=== PATIENT | female | born 1990 | race African-American/Black ===

== ENCOUNTER 2022-10-09 14:06 | Inpatient (IN) | payer MEDICAID, OTHER ==
[~2022-10-09] VITALS: Ht 160 cm; Wt 77.2 kg
[2022-10-09] MEDS ORDERED: LORazepam 2 MG/ML VIAL IM ONE (14:30)
[2022-10-09] MEDS ORDERED: HALOPERIDOL LACTATE 5 MG/ML VIAL IM ONE (14:30)
[2022-10-09] MEDS ORDERED: DiphenhydrAMINE HCL 50 MG/ML VIAL IM ONE (14:30)
[2022-10-09 15:41] LABS: BASOPHILS % (AUTO) 0.6 % (0.0-2.0); EOSINOPHILS % (AUTO) 0 % (1.0-6.0); HEMATOCRIT 34.1 % (36-46); HEMOGLOBIN 10.8 g/dL (12.0-16.0); LYMPHOCYTES # (AUTO) 2.1 K/uL (1.0-4.8); MEAN CORPUSCULAR HEMOGLOBIN 22.1 pg (26.0-34.0); MEAN CORPUSCULAR HGB CONC 31.7 G/dL (31.0-37.0); MEAN CORPUSCULAR VOLUME 70 fL (80-100); MONOCYTES # (AUTO) 0.7 K/uL (0.1-1.0); MONOCYTES % (AUTO) 5.5 % (2.0-9.0); NEUTROPHILS # (AUTO) 9.6 K/uL (1.8-7.7); NEUTROPHILS % (AUTO) 76.9 % (40.0-70.0); PLATELET COUNT (AUTO) 170 K/uL (150-450); RED BLOOD CELL COUNT(AUTO) 4.88 MIL/uL (4.00-5.20); RED CELL DISTRIBUTION WIDTH 15.3 % (11.5-14.5)
[2022-10-09 15:52] LABS: ANION GAP 14 mmol/L (8-16); CARBON DIOXIDE 21 mmol/L (22-29); CHLORIDE 99 mmol/L (98-107); CREATININE 1.17 mg/dL (0.60-1.30); GLOMERULAR FILTR. RATE CALC > 60 mL/min (>60); GLUCOSE,RANDOM 58 mg/dL (70-110); SODIUM SERUM 134 mmol/L (136-145)
[2022-10-09 15:56] LABS: ALANINE AMINOTRANSFERASE 120 U/L (12-78); ALBUMIN 3.6 g/dL (3.4-5.0); ALKALINE PHOSPHATASE 76 U/L (46-116); ASPARTATE AMINOTRANSFERASE 342 U/L (15-37); BILIRUBIN,TOTAL 1.2 mg/dL (0.1-1.0); TOTAL PROTEIN, SERUM 6.7 g/dL (6.4-8.2)
[2022-10-09 17:54] LABS: COVID AG,FIA SOURCE NASAL SWAB
[2022-10-10] MEDS ORDERED: HALOPERIDOL 5 MG TABLET PO PRN (01:00)
[2022-10-10] MEDS ORDERED: ZOLPIDEM TARTRATE 10 MG TABLET PO PRN (01:00)
[2022-10-10] MEDS ORDERED: ACETAMINOPHEN 500 MG TABLET PO ONE (07:00)
[2022-10-10] MEDS ORDERED: DiphenhydrAMINE HCL 50 MG/ML VIAL IM ONE (09:00)
[2022-10-10] MEDS ORDERED: HALOPERIDOL LACTATE 5 MG/ML VIAL IM ONE (09:00)
[2022-10-10] MEDS ORDERED: LORazepam 2 MG/ML VIAL IM ONE (09:00)
[2022-10-10 12:15] VITALS: BP 115/62; PULSE 86; RESP 16; TEMP 98; O2SAT 99
[2022-10-10] MEDS ORDERED: GuaiFENesin/D-METHORPHAN [SUGAR-FREE] 200-20MG/10 ML SYRUP UDCUP PO PRN (15:00)
[2022-10-10] MEDS ORDERED: DOCUSATE SODIUM 100 MG CAPSULE PO PRN (15:00)
[2022-10-10] MEDS ORDERED: NICOTINE 14 MG/24 HOUR PATCH TD PRN (15:00)
[2022-10-10] MEDS ORDERED: MAGNESIUM HYDROXIDE SUSPENSION 30 ML UDCUP PO PRN (15:00)
[2022-10-10] MEDS ORDERED: CloNIDine HCL 0.1 MG TABLET PO PRN (15:00)
[2022-10-10] MEDS ORDERED: MAG HYDROX/AL HYDROX/SIMETH ES 30 ML SUSPENSION UDCUP PO PRN (15:00)
[2022-10-10] MEDS ORDERED: POTASSIUM CHLORIDE 20 MEQ ER TABLET PO ONE (15:00)
[2022-10-10] MEDS ORDERED: LOPERAMIDE HCL 2 MG CAPSULE PO PRN (15:00)
[2022-10-10] MEDS ORDERED: ONDANSETRON HCL 4 MG TABLET PO PRN (15:00)
[2022-10-10] MEDS ORDERED: PETROLATUM,WHITE 28 GM JELLY TP PRN (15:00)
[2022-10-10] MEDS ORDERED: ALBUTEROL SULFATE HFA 90 MCG/PUFF 8 GM INHALER IH PRN (15:00)
[2022-10-10] MEDS: LORazepam 2 MG TABLET PO PRN (17:35)
[2022-10-10 20:10] VITALS: BP 120/72; PULSE 90; RESP 17; TEMP 97.7; O2SAT 96
[2022-10-11 08:31] VITALS: BP 103/62; PULSE 73; RESP 18; TEMP 97.9; O2SAT 98
[2022-10-11 08:37] LABS: ANION GAP 10 mmol/L (8-16); CARBON DIOXIDE 24 mmol/L (22-29); CHLORIDE 106 mmol/L (98-107); CREATININE 0.55 mg/dL (0.60-1.30); GLUCOSE,RANDOM 73 mg/dL (70-110); POTASSIUM 4.1 mmol/L (3.5-5.1); SODIUM SERUM 140 mmol/L (136-145)
[2022-10-11 08:38] LABS: ALANINE AMINOTRANSFERASE 91 U/L (12-78); ALBUMIN 2.9 g/dL (3.4-5.0); ALKALINE PHOSPHATASE 65 U/L (46-116); ASPARTATE AMINOTRANSFERASE 163 U/L (15-37); BILIRUBIN,TOTAL 0.4 mg/dL (0.1-1.0); CALCIUM, TOTAL 7.9 mg/dL (8.8-10.5); CHOL/HDL RATIO 2.4 (3.9-5.7); CHOLESTEROL 144 mg/dL (131-200); GLOMERULAR FILTR. RATE CALC > 60 mL/min (>60); HDL CHOLESTEROL 59 mg/dL (40-60); LDL CHOL (CALC.) 73 mg/dL (0-130); TOTAL PROTEIN, SERUM 6.2 g/dL (6.4-8.2); TRIGLYCERIDES 58 mg/dL (15-150)
[2022-10-11 09:02] LABS: THYROID STIMULATING HORMONE 1.22 uIU/mL (0.36-3.74)
[2022-10-11] MEDS: LORazepam 2 MG TABLET PO PRN (09:16)
[2022-10-11] MEDS: IBUPROFEN 400 MG TABLET PO PRN (09:16)
[2022-10-11] MEDS: FLUoxetine HCL 20 MG CAPSULE PO SCH (13:34)
[2022-10-11] MEDS: OLANZapine 5 MG TABLET PO SCH (13:34)
[2022-10-11 20:32] VITALS: BP 116/70; PULSE 93; RESP 18; TEMP 97.4; O2SAT 100
[2022-10-12 00:15] VITALS: BP 138/75; PULSE 95; RESP 18; TEMP 100.2; O2SAT 95
[2022-10-12] MEDS: IBUPROFEN 400 MG TABLET PO PRN (00:17)
[2022-10-12 01:17] VITALS: BP 100/55; PULSE 95; RESP 18; TEMP 100.8; O2SAT 96
[2022-10-12 06:11] LABS: GLUCOMETER DEV NAME(LOC) POC.BV
[2022-10-12 08:24] VITALS: RESP 16; TEMP 99
[2022-10-12] MEDS ORDERED: AZITHROMYCIN 500 MG TABLET PO SCH (09:00)
[2022-10-12] MEDS: OLANZapine 5 MG TABLET PO SCH (09:03)
[2022-10-12] MEDS: FLUoxetine HCL 20 MG CAPSULE PO SCH (09:03)
== END 2022-10-12 09:55 | disposition short-term general hospital (02) | DRG 750 ==
LOC: EMS 14:19 → EDBD 14:19 → B3A 10-10 08:39
PROVIDERS: ADMIT Psychiatry & Neurology Child & Adolescent Psychiatry; ATTEND Psychiatry & Neurology Child & Adolescent Psychiatry
DX: F20.0 Paranoid schizophrenia (principal); U07.1 COVID-19; E87.1 Hypo-osmolality and hyponatremia; E87.6 Hypokalemia; D72.829 Elevated white blood cell count, unspecified; D64.9 Anemia, unspecified
CPT/HCPCS: 80053; 80061; 83036; 84443; 84703; 85025; G0480; J1200; J1630; J2060; Q9967

== ENCOUNTER 2022-10-12 10:23 | Inpatient (IN) | payer MEDICAID, OTHER ==
[~2022-10-12] VITALS: Ht 160 cm; Wt 68.2 kg
[2022-10-12] MEDS ORDERED: ACETAMINOPHEN 500 MG TABLET PO ONE (13:00)
[2022-10-12 13:13] LABS: BASOPHILS % (AUTO) 0.3 % (0.0-2.0); EOSINOPHILS % (AUTO) 0.1 % (1.0-6.0); HEMATOCRIT 39.2 % (36-46); HEMOGLOBIN 12.4 g/dL (12.0-16.0); LYMPHOCYTES # (AUTO) 0.5 K/uL (1.0-4.8); LYMPHOCYTES % (AUTO) 14.1 % (22.0-44.0); MEAN CORPUSCULAR HEMOGLOBIN 22.4 pg (26.0-34.0); MEAN CORPUSCULAR HGB CONC 31.5 G/dL (31.0-37.0); MEAN CORPUSCULAR VOLUME 71 fL (80-100); MONOCYTES # (AUTO) 0.4 K/uL (0.1-1.0); NEUTROPHILS # (AUTO) 2.7 K/uL (1.8-7.7); NEUTROPHILS % (AUTO) 74.5 % (40.0-70.0); PLATELET COUNT (AUTO) 169 K/uL (150-450); RED BLOOD CELL COUNT(AUTO) 5.51 MIL/uL (4.00-5.20); RED CELL DISTRIBUTION WIDTH 15.4 % (11.5-14.5); WHITE BLOOD COUNT (AUTO) 3.7 K/uL (4.5-11.0)
[2022-10-12 13:25] LABS: ANION GAP 9 mmol/L (8-16); CALCIUM, TOTAL 8.2 mg/dL (8.8-10.5); CARBON DIOXIDE 26 mmol/L (22-29); CHLORIDE 100 mmol/L (98-107); CREATININE 0.77 mg/dL (0.60-1.30); GLOMERULAR FILTR. RATE CALC > 60 mL/min (>60); GLUCOSE,RANDOM 113 mg/dL (70-110); SODIUM SERUM 135 mmol/L (136-145); UREA NITROGEN, BLOOD 7 mg/dL (7-18)
[2022-10-12 13:29] LABS: ALANINE AMINOTRANSFERASE 88 U/L (12-78); ALBUMIN 3.2 g/dL (3.4-5.0); ALKALINE PHOSPHATASE 73 U/L (46-116); ASPARTATE AMINOTRANSFERASE 108 U/L (15-37); BILIRUBIN,TOTAL 0.2 mg/dL (0.1-1.0); TOTAL PROTEIN, SERUM 6.8 g/dL (6.4-8.2)
[2022-10-12 13:35] LABS: RBC MORPHOLOGY COMMENT ABNORMAL RBC MORPH
[2022-10-12 17:29] VITALS: BP 132/77; PULSE 78; RESP 18; TEMP 99.5
[2022-10-12] MEDS ORDERED: IBUPROFEN 400 MG TABLET PO PRN (18:30)
[2022-10-12] MEDS ORDERED: ONDANSETRON HCL 4 MG/2 ML VIAL IVP PRN (19:45)
[2022-10-12] MEDS ORDERED: 0.9% SODIUM CHLORIDE 10 ML SYRINGE IVP PRN (19:45)
[2022-10-12] MEDS ORDERED: OxyCODONE HCL/ACETAMINOPHEN 5-325 MG TABLET PO PRN ×2 (19:45)
[2022-10-12 20:03] VITALS: BP 132/84; PULSE 83; RESP 20; TEMP 100.2
[2022-10-12] MEDS: DOCUSATE SODIUM 100 MG CAPSULE PO SCH (21:00)
[2022-10-12] MEDS: CHOLECALCIFEROL (VIT D3) 1,000 UNITS [25 MCG] TABLET PO SCH (21:45)
[2022-10-12] MEDS: HEPARIN SODIUM,PORCINE 5,000 UNITS/ML VIAL SQ SCH (21:45)
[2022-10-12] MEDS: ACETAMINOPHEN 325 MG TABLET PO PRN (21:46)
[2022-10-12] MEDS: BENZOCAINE/MENTHOL LOZENGE PO PRN (21:48)
[2022-10-12] MEDS: PANTOPRAZOLE SODIUM 40 MG/VIAL IVP SCH (22:01)
[2022-10-13 03:00] LABS: APPEARANCE,URINE CLEAR (CLEAR); BILIRUBIN,URINE NEGATIVE (NEGATIVE); COLOR,URINE LIGHT YELLOW (YELLOW); GLUCOSE, URINE (UA) NEGATIVE (NEGATIVE); KETONES,URINE NEGATIVE (NEGATIVE); LEUKOCYTE ESTERASE ,URINE NEGATIVE (NEGATIVE); NITRATE,URINE NEGATIVE (NEGATIVE); OCCULT BLOOD,URINE NEGATIVE (NEGATIVE); PROTEIN,URINE NEGATIVE (NEGATIVE); SPECIFIC GRAVITIY, URINE 1.012 (1.003-1.030); UROBILINOGEN,URINE <=1.0 mg/dL (<=1.0)
[2022-10-13 04:11] VITALS: BP 113/61; PULSE 75; RESP 20; TEMP 98.8
[2022-10-13 07:47] LABS: BASOPHILS % (AUTO) 0.8 % (0.0-2.0); EOSINOPHILS % (AUTO) 0 % (1.0-6.0); HEMATOCRIT 37.9 % (36-46); HEMOGLOBIN 12.1 g/dL (12.0-16.0); LYMPHOCYTES # (AUTO) 1.2 K/uL (1.0-4.8); LYMPHOCYTES % (AUTO) 48.1 % (22.0-44.0); MEAN CORPUSCULAR HEMOGLOBIN 22.6 pg (26.0-34.0); MEAN CORPUSCULAR HGB CONC 32.1 G/dL (31.0-37.0); MEAN CORPUSCULAR VOLUME 70 fL (80-100); MONOCYTES # (AUTO) 0.4 K/uL (0.1-1.0); MONOCYTES % (AUTO) 16.5 % (2.0-9.0); NEUTROPHILS # (AUTO) 0.9 K/uL (1.8-7.7); NEUTROPHILS % (AUTO) 34.6 % (40.0-70.0); PLATELET COUNT (AUTO) 159 K/uL (150-450); RED BLOOD CELL COUNT(AUTO) 5.39 MIL/uL (4.00-5.20); RED CELL DISTRIBUTION WIDTH 15.5 % (11.5-14.5); WHITE BLOOD COUNT (AUTO) 2.5 K/uL (4.5-11.0)
[2022-10-13 07:59] LABS: ANION GAP 11 mmol/L (8-16); CARBON DIOXIDE 24 mmol/L (22-29); CHLORIDE 101 mmol/L (98-107); GLOMERULAR FILTR. RATE CALC > 60 mL/min (>60); GLUCOSE,RANDOM 88 mg/dL (70-110); POTASSIUM 3.7 mmol/L (3.5-5.1); SODIUM SERUM 136 mmol/L (136-145); UREA NITROGEN, BLOOD 6 mg/dL (7-18)
[2022-10-13 08:10] VITALS: BP 119/74; PULSE 80; RESP 19; TEMP 99.8
[2022-10-13 08:30] VITALS: RESP 18
[2022-10-13 08:30] LABS: RBC MORPHOLOGY COMMENT ABNORMAL RBC MORPH
[2022-10-13] MEDS: HEPARIN SODIUM,PORCINE 5,000 UNITS/ML VIAL SQ SCH ×4 (09:00→21:00)
[2022-10-13] MEDS: PANTOPRAZOLE SODIUM 40 MG/VIAL IVP SCH (09:45)
[2022-10-13] MEDS: DOCUSATE SODIUM 100 MG CAPSULE PO SCH ×2 (09:46→21:00)
[2022-10-13] MEDS: CHOLECALCIFEROL (VIT D3) 1,000 UNITS [25 MCG] TABLET PO SCH (09:46)
[2022-10-13 09:50] VITALS: RESP 16
[2022-10-13] MEDS: ACETAMINOPHEN 325 MG TABLET PO PRN ×2 (10:08→18:06)
[2022-10-13] MEDS: BENZOCAINE/MENTHOL LOZENGE PO PRN ×2 (10:15→18:07)
[2022-10-13 16:40] VITALS: BP 138/74; PULSE 71; RESP 18; TEMP 99.4
[2022-10-13 20:00] VITALS: BP 119/81; PULSE 78; RESP 18; TEMP 99.3
[2022-10-14] MEDS: BENZOCAINE/MENTHOL LOZENGE PO PRN ×4 (00:12→21:32)
[2022-10-14 04:30] VITALS: BP 118/70; PULSE 69; RESP 18; TEMP 99.8
[2022-10-14] MEDS: ACETAMINOPHEN 325 MG TABLET PO PRN ×3 (04:41→20:34)
[2022-10-14 05:30] VITALS: TEMP 98.9
[2022-10-14] MEDS: HEPARIN SODIUM,PORCINE 5,000 UNITS/ML VIAL SQ SCH ×4 (09:00→20:34)
[2022-10-14] MEDS: PANTOPRAZOLE SODIUM 40 MG/VIAL IVP SCH (09:00)
[2022-10-14] MEDS: CHOLECALCIFEROL (VIT D3) 1,000 UNITS [25 MCG] TABLET PO SCH (09:14)
[2022-10-14] MEDS: DOCUSATE SODIUM 100 MG CAPSULE PO SCH ×2 (09:14→20:22)
[2022-10-14] MEDS: BENZONATATE 100 MG CAPSULE PO PRN (10:44)
[2022-10-14] MEDS: PANTOPRAZOLE SODIUM 40 MG DR TABLET PO SCH (10:44)
[2022-10-14 14:00] LABS: ALANINE AMINOTRANSFERASE 50 U/L (12-78); ALKALINE PHOSPHATASE 67 U/L (46-116); ANION GAP 8 mmol/L (8-16); ASPARTATE AMINOTRANSFERASE 44 U/L (15-37); BILIRUBIN,TOTAL 0.2 mg/dL (0.1-1.0); CALCIUM, TOTAL 8.6 mg/dL (8.8-10.5); CARBON DIOXIDE 27 mmol/L (22-29); CHLORIDE 100 mmol/L (98-107); CREATININE 0.62 mg/dL (0.60-1.30); GLOMERULAR FILTR. RATE CALC > 60 mL/min (>60); GLUCOSE,RANDOM 117 mg/dL (70-110); POTASSIUM 3.8 mmol/L (3.5-5.1); SODIUM SERUM 135 mmol/L (136-145); TOTAL PROTEIN, SERUM 6.9 g/dL (6.4-8.2); UREA NITROGEN, BLOOD 8 mg/dL (7-18)
[2022-10-14 17:23] VITALS: BP 112/73; PULSE 63; RESP 18; TEMP 97.5
[2022-10-14 19:35] VITALS: BP 110/60; PULSE 71; RESP 18; TEMP 98.7
[2022-10-15 04:05] VITALS: BP 96/63; PULSE 63; RESP 16; TEMP 98.5
[2022-10-15] MEDS: DOCUSATE SODIUM 100 MG CAPSULE PO SCH ×2 (09:19→20:05)
[2022-10-15] MEDS: CHOLECALCIFEROL (VIT D3) 1,000 UNITS [25 MCG] TABLET PO SCH (09:19)
[2022-10-15] MEDS: PANTOPRAZOLE SODIUM 40 MG DR TABLET PO SCH (09:19)
[2022-10-15 16:00] VITALS: BP 119/62; PULSE 62; RESP 18; TEMP 98.7
[2022-10-15] MEDS: HEPARIN SODIUM,PORCINE 5,000 UNITS/ML VIAL SQ SCH ×2 (16:00→21:00)
[2022-10-15 19:40] VITALS: BP 112/53; PULSE 66; RESP 16; TEMP 98.2
[2022-10-15] MEDS: BENZONATATE 100 MG CAPSULE PO PRN (20:05)
[2022-10-15] MEDS: ACETAMINOPHEN 325 MG TABLET PO PRN (20:07)
[2022-10-15] MEDS: BENZOCAINE/MENTHOL LOZENGE PO PRN (22:46)
[2022-10-16 04:10] VITALS: BP 93/48; PULSE 61; RESP 20; TEMP 98.2
[2022-10-16 07:29] VITALS: BP 102/56; PULSE 64; RESP 20; TEMP 98.4
[2022-10-16] MEDS: DOCUSATE SODIUM 100 MG CAPSULE PO SCH (08:29)
[2022-10-16] MEDS: PANTOPRAZOLE SODIUM 40 MG DR TABLET PO SCH (08:29)
[2022-10-16] MEDS: CHOLECALCIFEROL (VIT D3) 1,000 UNITS [25 MCG] TABLET PO SCH (08:29)
[2022-10-16] MEDS: HEPARIN SODIUM,PORCINE 5,000 UNITS/ML VIAL SQ SCH (08:30)
[2022-10-16] MEDS: BENZOCAINE/MENTHOL LOZENGE PO PRN (08:30)
== END 2022-10-16 13:15 | disposition home or self-care (01) | DRG 137 ==
LOC: EMS 10:39 → AHU 14:16 → 6N 15:37
PROVIDERS: ADMIT Internal Medicine; ATTEND Internal Medicine
DX: U07.1 COVID-19 (principal); R45.851 Suicidal ideations; D72.819 Decreased white blood cell count, unspecified; F31.30 Bipolar disorder, current episode depressed, mild or moderate severity, unspecified; R74.01 Elevation of levels of liver transaminase levels
CPT/HCPCS: 71045; 76700; 80048; 80053; 81003; 84703; 85025; 99285; C9113; J1644; 36415-L1; 36415-TC

== ENCOUNTER 2022-10-17 00:04 | Emergency (ER) | payer OTHER ==
[~2022-10-17] VITALS: Ht 160 cm; Wt 65.9 kg
[2022-10-17 00:40] VITALS: BP 113/82; PULSE 78; RESP 13; TEMP 98.4
== END 2022-10-17 02:03 | disposition home or self-care (01) ==
LOC: EMS 00:05
DX: U07.1 COVID-19 (principal); F31.9 Bipolar disorder, unspecified; F17.210 Nicotine dependence, cigarettes, uncomplicated; E86.0 Dehydration
CPT/HCPCS: 99281; Z7502